=== PATIENT | female | born 1955 | race Caucasian/White ===

== ENCOUNTER 2024-01-27 09:55 | Emergency (ER) | payer MEDICARE ==
[2024-01-27] MEDS ORDERED: Naloxone 0.4 MG/ML SDV IVPUSH PRN (10:43)
[2024-01-27] MEDS: Sodium Chloride 0.9% 1,000 ML IV ONE ×3 (10:45→14:38)
[2024-01-27] MEDS: Ondansetron 4 MG/2 ML SDV IVPUSH ONE (10:48)
[2024-01-27] MEDS: HYDROmorphone 0.5 MG/0.5 ML Syringe IVPUSH ONE (10:49)
[2024-01-27 10:53] LABS: HEMATOCRIT 35.2 % (34.3-46.0); HEMOGLOBIN 13.1 g/dL (11.2-15.5); MEAN CORPUSCULAR HEMOGLOBIN 30.8 pg (31.6-35.5); MEAN CORPUSCULAR HGB CONC 37.2 g/dL (31.6-35.5); MEAN CORPUSCULAR VOLUME 82.8 fL (81.4-99.0); PLATELET COUNT,PLT 92 K/uL (130-375); RED BLOOD CELL COUNT 4.25 M/uL (3.77-5.24); WHITE BLOOD CELL COUNT,WBC 21.5 K/uL (3.2-11.0)
[2024-01-27 10:58] LABS: CALCIUM 8.7 mg/dL (8.5-10.1); EST CRCL DRUG DOSING (CG) 7.3 mL/min; POTASSIUM,K 5.8 mmol/L (3.6-5.2)
[2024-01-27 11:00] LABS: ANION GAP 18.8 mmol/L (5.0-14.0)
[2024-01-27] MEDS ORDERED: levETIRAcetam 500 MG/5 ML Solution ML 473 ml Bottle PO SCH (11:00)
[2024-01-27 11:02] LABS: CREATININE 6.5 mg/dL (0.6-1.0)
[2024-01-27] MEDS: levETIRAcetam 250 MG Tab PO SCH (11:08)
[2024-01-27 11:20] LABS: BASE EXCESS VENOUS -4.8 mm/L; BICARBONATE,VENOUS 19.8 mmol/L; CARBOXYHEMOGLOBIN 2.9 % (0.0-1.6); METHEMOGLOBIN 0.7 %; O2 SATURATION VENOUS 54.6; OXYHEMOGLOBIN 52.6 %; PCO2 VENOUS 37.2 mm/Hg; PH,VENOUS 7.346 (7.350-7.450); TOTAL HEMOGLOBIN 12.3 g/dL (12.0-16.0)
[2024-01-27 11:23] LABS: PO2 VENOUS 33.3 mm/Hg
[2024-01-27 11:26] LABS: BAND ABSOLUTE MAN 1.94 K/uL; BAND PERCENT MAN 9 % (5-11); EOSINOPHILS ABSOLUTE MAN 0.22 K/uL (0.00-0.40); EOSINOPHILS PERCENT MAN 1 % (2-4); LYMPHOCYTES ABSOLUTE MAN 0.22 K/uL (0.8-3.3); LYMPHOCYTES PERCENT MAN 1 % (24-44); MONOCYTES ABSOLUTE MAN 0.43 K/uL (0.20-0.90); MONOCYTES PERCENT MAN 2 % (2-6); NEUTROPHILS ABSOLUTE MAN 18.71 K/uL (1.0-7.6); SEG NEUTROPHILS PERCENT MAN 87 % (36-66)
[2024-01-27 11:26] LABS: CORONAVIRUS COVID-19 NAA NEGATIVE (NEGATIVE); INFLUENZA A NAA NEGATIVE (NEGATIVE); INFLUENZA B NAA NEGATIVE (NEGATIVE); RESPIRATORY SYNCYTIAL VIR NAA NEGATIVE (NEGATIVE)
[2024-01-27] MEDS: cefTRIAXone 1 GM in Sodium Chloride 0.9% 50 ML IV ONE (11:30)
[2024-01-27 13:29] LABS: CALCIUM 7.7 mg/dL (8.5-10.1); EST CRCL DRUG DOSING (CG) 7.66 mL/min
[2024-01-27 13:36] LABS: CREATININE 6.2 mg/dL (0.6-1.0)
[2024-01-27] MEDS: Acetaminophen 325 MG Tab PO ONE (16:35)
[2024-01-27 17:31] VITALS: BP 135/75; PULSE 92
[2024-01-27 17:46] LABS: APPEARANCE,URINE TURBID (CLEAR); BILIRUBIN,URINE NEGATIVE (NEGATIVE); COLOR,URINE YELLOW (YELLOW); GLUCOSE,URINE NEGATIVE (NEGATIVE); KETONES,URINE NEGATIVE (NEGATIVE); LEUKOCYTE ESTERASE,URINE LARGE (NEGATIVE); NITRITE,URINE POSITIVE (NEGATIVE); OCCULT BLOOD,URINE LARGE (NEGATIVE); PROTEIN,URINE >=300 mg/dL (NEGATIVE); UROBILINOGEN,URINE 0.2 EU/dL (0.2-1.0)
[2024-01-27 17:51] LABS: BACTERIA,URINE MANY; EPITHELIAL CELLS,URINE FEW; RBC,URINE PACKED (0-5); WBC,URINE PACKED (0-5)
[2024-01-27 17:52] LABS: AMORPHOUS SEDIMENT,URINE FEW; MUCUS,URINE NOT SEEN
[2024-01-31 23:11] LABS: KEPPRA (LEVETIRACETAM) 109 ug/mL (10-40)
== END 2024-01-27 17:58 | disposition critical access hospital (66) ==
LOC: JP.ED 09:55
DX: N39.0 Urinary tract infection, site not specified (principal); E86.0 Dehydration; E87.1 Hypo-osmolality and hyponatremia; N28.9 Disorder of kidney and ureter, unspecified; Z79.899 Other long term (current) drug therapy
CPT/HCPCS: 0241U; 36415; 74176; 80048; 80177; 81001; 82803; 83605; 84145; 85025; 87040; 87077; 87186; 96361; 96365; 96375; 99284; 99285; A9270; J0696; J1170; J2405; J3490; J7030

== ENCOUNTER 2024-04-25 01:16 | Emergency (ER) | payer MEDICARE ==
[2024-04-25] MEDS: Ketorolac 30 MG/ML SDV IM ONE (01:40)
[2024-04-25] MEDS: Ondansetron 4 MG Tab.DIS PO ONE (01:40)
[2024-04-25 01:49] LABS: BASOPHILS ABSOLUTE AUTO 0.04 K/uL (0.00-0.10); BASOPHILS PERCENT AUTO 0.4 % (0.1-1.3); EOSINOPHILS ABSOLUTE AUTO 0.04 K/uL (0.00-0.40); EOSINOPHILS PERCENT AUTO 0.4 % (0.0-5.4); HEMATOCRIT 26.8 % (34.3-46.0); HEMOGLOBIN 9.3 g/dL (11.2-15.5); IMMATURE GRAN ABSOLUTE AUTO 0.03 K/uL (0.00-0.23); IMMATURE GRAN PERCENT AUTO 0.3 % (0.0-0.7); LYMPHOCYTES ABSOLUTE AUTO 1.98 K/uL (0.8-3.3); LYMPHOCYTES PERCENT AUTO 20.6 % (11.4-47.7); MEAN CORPUSCULAR HEMOGLOBIN 31.1 pg (31.6-35.5); MEAN CORPUSCULAR HGB CONC 34.7 g/dL (31.6-35.5); MEAN CORPUSCULAR VOLUME 89.6 fL (81.4-99.0); MONOCYTES ABSOLUTE AUTO 0.73 K/uL (0.20-0.90); MONOCYTES PERCENT AUTO 7.6 % (3.3-12.6); NEUTROPHILS ABSOLUTE AUTO 6.78 K/uL (1.0-7.6); NEUTROPHILS PERCENT AUTO 70.7 % (40.0-78.1); PLATELET COUNT,PLT 132 K/uL (130-375); RED BLOOD CELL COUNT 2.99 M/uL (3.77-5.24); WHITE BLOOD CELL COUNT,WBC 9.6 K/uL (3.2-11.0)
[2024-04-25 01:52] LABS: APPEARANCE,URINE CLOUDY (CLEAR); BILIRUBIN,URINE NEGATIVE (NEGATIVE); COLOR,URINE YELLOW (YELLOW); GLUCOSE,URINE NEGATIVE (NEGATIVE); KETONES,URINE NEGATIVE (NEGATIVE); LEUKOCYTE ESTERASE,URINE LARGE (NEGATIVE); NITRITE,URINE NEGATIVE (NEGATIVE); OCCULT BLOOD,URINE SMALL (NEGATIVE); PROTEIN,URINE 100 mg/dL (NEGATIVE); UROBILINOGEN,URINE 0.2 EU/dL (0.2-1.0)
[2024-04-25 01:53] LABS: AMORPHOUS SEDIMENT,URINE NOT SEEN; BACTERIA,URINE MANY; EPITHELIAL CELLS,URINE FEW; MUCUS,URINE NOT SEEN; WBC,URINE >100 (0-5)
[2024-04-25 02:07] LABS: A/G RATIO 0.9 (1.2-2.2); ALANINE AMINOTRANSFERASE,ALT 20 U/L (12-78); ALBUMIN 3.6 g/dL (3.4-5.0); ALKALINE PHOSPHATASE 85 U/L (46-116); ASPARTATE AMNIOTRANSFERASE,AST 15 U/L (15-37); BILIRUBIN TOTAL 0.3 mg/dL (0.2-1.0); BLOOD UREA NITROGEN,BUN 37 mg/dL (7-18); CALCIUM 9.4 mg/dL (8.5-10.1); CARBON DIOXIDE,CO2 26 mmol/L (21-32); CHLORIDE,CL 98 mmol/L (100-108); CREATININE 3.1 mg/dL (0.6-1.0); EST CRCL DRUG DOSING (CG) 15.63 mL/min; ESTIMATED GFR 16 mL/min (>60); GLUCOSE RANDOM 127 mg/dL (74-106); POTASSIUM,K 3.8 mmol/L (3.6-5.2); PROTEIN TOTAL,TP 7.6 g/dL (6.4-8.2); SODIUM,NA 135 mmol/L (140-148)
[2024-04-25 02:10] LABS: ANION GAP 14.8 mmol/L (5.0-14.0)
[2024-04-25] MEDS: cefTRIAXone 1 GM, Lidocaine 1% 2.1 ML IM ONE (03:58)
[2024-04-25 04:23] VITALS: BP 116/67; PULSE 71
== END 2024-04-25 04:15 | disposition home or self-care (01) ==
LOC: JP.ED 01:16
DX: N12 Tubulo-interstitial nephritis, not specified as acute or chronic (principal); Z79.899 Other long term (current) drug therapy
CPT/HCPCS: 36415; 74176; 80053; 81001; 83605; 85025; 87086; 87088; 87186; 96372; 99284; J0696; J1885; Q0162

== ENCOUNTER 2025-04-08 09:16 | Day surgery (SDC) | payer MEDICARE ==
[~2025-04-08 09:16] MED LIST: Midazolam 1 MG/ML 2 ML SDV ONE; Propofol 200 MG/20 ML SDV ONE; fentaNYL 50 MCG/ML SDV ONE
[2025-04-08] MEDS: Lactated Ringers 1,000 ML IV SCH (10:12)
[2025-04-08 12:44] VITALS: PULSE 52
[2025-04-08 13:12] VITALS: BP 127/71
== END 2025-04-08 13:14 | disposition home or self-care (01) ==
LOC: JP.SDS 09:16
PROVIDERS: ATTEND Surgery
DX: Z12.11 Encounter for screening for malignant neoplasm of colon (principal); D12.3 Benign neoplasm of transverse colon; K57.30 Diverticulosis of large intestine without perforation or abscess without bleeding
CPT/HCPCS: 00811; 45380; J2250; J2704; J3010; J7120